=== PATIENT | male | born 1960 | race African-American/Black ===

== ENCOUNTER 2023-10-23 15:18 | Inpatient (IN) | payer OTHER, SELFPAY ==
[2023-10-22] VITALS (15 sets, daily range): BP systolic 120–174; BP diastolic 80–97; BMI 28.2; BMI 27.5
--- NOTE | 2023-10-22 14:46 | ED.CVA ---
History of Present Illness
<HARLEY Ochoa - Last Filed: 10/22/23 15:44>
General
Chief Complaint: CVA/TIA Symptoms
Source: patient
Exam Limitations: none
Time Seen by Provider: 10/22/23 14:39
Nursing documentation reviewed up to this point in time: agreed with
Onset of Stroke Symptoms
Onset of symptoms known: Yes
Date of onset of symptoms: 10/21/23
History of Present Illness
History of Present Illness:
Patient is a 63-year-old male with past medical history of bfw-egikdwm-stbzdzmio diabetes chronic back pain on meloxicam ,brought by friend for evaluation. Neurology and grievance and appeals coordinator at bedside. Patient presents awake alert reports last
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 He did continue to work the rest of the night till 12 AM and drove home .When he got home he noticed that he had a droop to the left side
of his face. He did speak with his friend but did not come to the ER until this morning.
Patient reports that he does feel that when he tries to swipe up on his phone in his left hand it is slightly weaker and off.
He denies any visual changes blurry vision. He denies any chest pain shortness of breath.
Review of Systems
<HARLEY Ochoa - Last Filed: 10/22/23 15:44>
Review of Systems
Allergies reviewed?: Yes
All Other Systems: ROS reviewed and negative except as documented in HPI and ROS
Constitutional: Reports no symptoms
Respiratory: Reports no symptoms
Cardiac: Reports no symptoms
ABD/GI: Reports no symptoms
Musculoskeletal: Reports no symptoms
Skin: Reports no symptoms
Neurological: Reports other (left sided facial droop and slurred speech started around 10: 30 pm Last night )
Psychiatric: Reports no symptoms
Phy Exam
<HARLEY Ochoa - Last Filed: 10/22/23 15:44>
General Physical Exam
General Presentation: no apparent distress
General age: appears stated age
General Skin: warm and dry
General Habitus: normal
General Mental: alert
General Hydration: appears well hydrated
ENT Exam
ENT Exam: EOMI and neck supple
Eye Exam
Eye Exam: PERRL, EOMI and visual lynn normal
Eye Exam General: PERRL: bilateral and EOM intact: bilateral
Pupil Exam: Bilateral: round and reactive
Cardiovascular Exam
Cardiovascular Exam: regular rate/rhythm, no murmur and normal peripheral pulses
Pulmonary Exam
Pulmonary Exam: lungs clear and no respiratory distress
Neurological Exam
Neurological Exam: alert, oriented x3, no motor deficits, no sensory deficits and other (Patient with garbled speech though he is understood. Left-sided facial droop)
NIH Stroke Score
Level of Consciousness: 0 - Alert
LOC questions: 0-Answers both correctly
LOC Commands: 0-Performs both correctly
Best Gaze: 0-Normal
Facial palsy: 2=Partial paralysis
[place] Coma Scale
Eye Opening: Spontaneous
Verbal Response: Oriented
Motor Response: Obeys Commands
GCS Total Score: 15
Musculoskeletal Exam
Musculoskeletal Exam: full ROM
Scores
<HARLEY Ochoa - Last Filed: 10/22/23 15:44>
NIH Stroke Score
Level of Consciousness: 0 - Alert
LOC Questions: 0-Answers both correctly
LOC Commands: 0-Performs both correctly
Best Horizontal Gaze: 0-Normal
Visual Lynn: 0=Normal, no visual loss
Facial Palsy: 2=Partial paralysis
Motor - Right Arm: 0=No drift 10 seconds
Motor - Left Arm: 0=No drift 10 seconds
Motor - Right Le-No drift 5 seconds
Motor - Left Le-No drift 5 seconds
Limb Ataxia: 0-Absent
Sensation: 0-Normal
Best Language: 1-Mild aphasia
Dysarthria: 0-Normal
Extinction and Inattention: 0-No abnormality
Total Score:: 3
<Garland Rice MD - Last Filed: 10/22/23 15:33>
NIH Stroke Score
Total Score:: 3
Course
<HARLEY Ochoa - Last Filed: 10/22/23 15:44>
Orders/Labs/Results
Orders:
Orders
10/22/23 14:41
CT Head W/o Cont STROKE ALERT Urgent
Reason For Exam: cva
CT Head/Neck Ang STROKE ALERT Urgent
Reason For Exam: cva
10/22/23 14:46
Electrocardiogram (*1) Stat
Reason for Study: Other
Other Reason for Exam: neuro symptoms
Bedside Glucose- Treatment ONCE
Cardiac Monitoring- Treatment ONCE
EKG- Treatment ONCE
IV Insert/Care/Rem.- Treatment PRN
10/22/23 14:47
CT Brain Perfusion Stat
Comment:
Reason For Exam: dysarthria, facial weakness, onset 10pm 814
10/22/23 14:54
Complete Blood Count/With Diff Urgent
Comprehensive Metabolic Panel Urgent
Troponin I Urgent
10/22/23 14:56
PT/INR [Prothrombin Time] Stat
10/22/23 15:34
NEUROLOGY CONSULT Urgent
Consulting Provider: Marisela Mendez
Was physician already notified: Yes
Aspirin Chewable [Low Strength Aspirin] 324 mg PO NOW STA
10/22/23 15:35
Clopidogrel Bisulfate [Plavix] 300 mg PO NOW STA
Abnormal Lab Results
10/22/23 10/22/23
14:40 14:54
WBC 3.8 L 10^3/uL
(4.8-10.8)
RBC 4.09 L 10^6/uL
(4.70-6.10)
MCV 100.2 H fL
(80.0-94.0)
MCH 35.0 H pg
(27.0-31.0)
Absolute Lymphs (auto) 0.9 L 10^3/uL
(1.2-3.4)
Monocytes % 13.4 H %
(1.7-9.3)
Glucose 111 H mg/dl
(70-99)
POC Glucose 102 H mg/dl
(70-99)
10/22/23 14:54
10/22/23 14:54
Vital Signs
Initial and Last Documented VS:
Initial Vital Signs
Temp Pulse Resp BP Pulse Ox
98.0 F 88 16 160/93 95
10/22/23 14:34 10/22/23 14:34 10/22/23 14:34 10/22/23 14:34 10/22/23 14:34
Last Documented Vital Signs
Temp Pulse Resp BP Pulse Ox
98.0 F 85 14 147/87 99
10/22/23 14:34 10/22/23 15:27 10/22/23 15:27 10/22/23 15:27 10/22/23 15:27
Cooling Machine Operator consulted with Physician
Cooling Machine Operator consulted with physician?: Yes
Name of Physician Consulted: Dr Rice
<Garland Rice MD - Last Filed: 10/22/23 15:33>
Orders/Labs/Results
Orders:
Orders
10/22/23 14:41
CT Head W/o Cont STROKE ALERT Urgent
Reason For Exam: cva
CT Head/Neck Ang STROKE ALERT Urgent
Reason For Exam: cva
10/22/23 14:46
Electrocardiogram (*1) Stat
Reason for Study: Other
Other Reason for Exam: neuro symptoms
Bedside Glucose- Treatment ONCE
Cardiac Monitoring- Treatment ONCE
EKG- Treatment ONCE
IV Insert/Care/Rem.- Treatment PRN
10/22/23 14:47
CT Brain Perfusion Stat
Comment:
Reason For Exam: dysarthria, facial weakness, onset 10pm 10/20
10/22/23 14:54
Complete Blood Count/With Diff Urgent
Comprehensive Metabolic Panel Urgent
Troponin I Urgent
10/22/23 14:56
PT/INR [Prothrombin Time] Stat
10/22/23 15:34
NEUROLOGY CONSULT Urgent
Consulting Provider: Marisela Mendez
Was physician already notified: Yes
Aspirin Chewable [Low Strength Aspirin] 324 mg PO NOW STA
10/22/23 15:35
Clopidogrel Bisulfate [Plavix] 300 mg PO NOW STA
Abnormal Lab Results
10/22/23 10/22/23
14:40 14:54
WBC 3.8 L 10^3/uL
(4.8-10.8)
RBC 4.09 L 10^6/uL
(4.70-6.10)
MCV 100.2 H fL
(80.0-94.0)
MCH 35.0 H pg
(27.0-31.0)
Absolute Lymphs (auto) 0.9 L 10^3/uL
(1.2-3.4)
Monocytes % 13.4 H %
(1.7-9.3)
Glucose 111 H mg/dl
(70-99)
POC Glucose 102 H mg/dl
(70-99)
10/22/23 14:54
10/22/23 14:54
Vital Signs
Initial and Last Documented VS:
Initial Vital Signs
Temp Pulse Resp BP Pulse Ox
98.0 F 88 16 160/93 95
10/22/23 14:34 10/22/23 14:34 10/22/23 14:34 10/22/23 14:34 10/22/23 14:34
Last Documented Vital Signs
Temp Pulse Resp BP Pulse Ox
98.0 F 85 14 147/87 99
10/22/23 14:34 10/22/23 15:27 10/22/23 15:27 10/22/23 15:27 10/22/23 15:27
<HARLEY Ochoa - Last Filed: 10/22/23 15:44>
MDM/Problems Addressed
Differential Diagnosis Includes:
not limited to: cva
MDM/Problems Addressed:
Patient is a 63-year-old male with past medical history of diabetes chronic back pain on meloxicam and metformin presents to the ER for evaluation. Last night around 10:30 PM working he noticed that his speech was slurred in the medical home at 12
PM he noticed that his face was drooped on the left. He denies any headache nausea vomiting chest pain shortness of breath. No prior history of stroke. Neurology was at bedside when patient was brought back to the room. NIH score is 3 ; patient
with mild slurred speech and facial droop on the left
1526: No large vessel occlusion as per radiology right anterior temporal encephalomalacia.
1535: Neurology back at bedside aspirin Plavix ordered patient emma stable admitted to the hospital service
<HARLEY Ochoa - Last Filed: 10/22/23 15:44>
*Radiology
Radiology exam reviewed: radiology read reviewed
*Pulse Oximetry
Patient hypoxic: no
*EKG
Interpreted by ED Provider?: Yes
Comparison EKG: no comparison EKG present
Heart Rate: 85
Rate: normal
Rhythm: sinus
Ischemia: no ischemia
*Critical Care Note
Total Time (30-74mins, 75-104mins- exclusive of procedures): Not Applicable
<HARLEY Ochoa - Last Filed: 10/22/23 15:44>
Patient Management
Discussion with other providers: Shingle Inspector (Neuro Dr Mendez )
ED Attending Note
<HARLEY Ochoa - Last Filed: 10/22/23 15:44>
-
Portions of this chart may have been created with voice recognition software.� Occasional wrong word or��sound alike� substitutions may have occurred due to the inherent limitations of voice recognition software.
<Garland Rice MD - Last Filed: 10/22/23 15:33>
ED Attending Note
Patient seen and examined by attending physician: Yes
I performed the substantive portion of visit, reviewed & personally made and approve the management plan that is documented in note by myself or EYAD.: Yes
ED Attending Note:
Patient with slurred speech and left facial droop that started last evening. Also notes some incoordination with the left hand. No other symptoms. Patient is diabetic. On exam he has a left facial droop. Mild slurred speech. [id number]
normal. No weakness in the arms or legs. Light touch intact. No extinction.
CT shows right frontal encephalomalacia. No other acute findings. No large vessel occlusion. No acute treatment for this stroke that already occurred but warrants admission for further workup
Discharge Plan
Departure
Patient Disposition: Admit
Date of Disposition: 10/22/23
Time of Disposition: 15:40
Admit to: Telemetry
Admit to doctor: hospitalist
Presentation/result/management discussed w/ accepting MD/DO: Hospitalist
Patient with high blood pressure during this ER visit?: Yes
Condition: Fair
Covid-19: Not Applicable
Discharge Problem:
Acute CVA (cerebrovascular accident)
Referrals:
Jemal Crabtree MD [Family Provider] -
Interventions
Interventions:
*Risk Screen - Suicide Last Done: 10/22/23 15:19
*General Assessment Last Done: 10/22/23 15:19
*Neglect/Abuse Screening Last Done: 10/22/23 15:19
ED- Fall Risk Assessment Last Done: 10/22/23 15:19
ED- Pulmonary Assessment Last Done: 10/22/23 15:19
ED- Neurological Assessment Last Done: 10/22/23 15:30
ED- Cardiac Assessment Last Done: 10/22/23 15:19
ED Swallowing Screen Last Done: 10/22/23 15:37
Discharge Date and Time
Print Language: URDU
[2023-10-22 14:51] LABS: Glucose - Point of Care 102 mg/dl (70-99)
--- NOTE | 2023-10-22 14:54 | CON.NEURO4 ---
Addendum entered and electronically signed by Marisela Mendez DO 10/22/23 16:56:
Studies reviewed.
I have personally examined the patient. I agree with the CHARGER TESTER's Note.
My addenda: 63 year-old male with a history of diabetes who presented for evaluation for moderate dysarthria and L facial weakness with onset yesterday at 10pm while at work. He also has noted mild difficulty with left hand fine motor skills
(although this was not seen on exam). Agree with exam as documented below, NIHSS is 3; CTA showed no LVO. CTP was negative for stroke.
Differentials for the patient's presentation include:
1. Acute right hemispheric ischemic stroke
2. hypertensive urgency
Patient has the following risk factors for their symptoms: age, DM
IV Tenecteplase/IAT candidacy-out of the window for TNK, no LVO noted on CTA for IAT
Recommendations:
MRI brain without contrast
Load with 325 mg ASA and Plavix 300 mg once swallow evaluation completed
Then ASA 81 mg and Plavix 75 mg daily for 21 days. After 21 days he should continue ASA 81 mg indefinitely
Check Echo
Check lipids-goal LDL less the 70-start Atorvastatin 40 mg
Check [id number] normoglycemia
Allow permissive hypertension 220/110 for 24 hours and then goal normotension
NIH scale and neurochecks per unit protocol
PT/OT and speech evaluations
DVT prophylaxis
Original Note:
Documented by User: HARLEY Alvarenga 10/22/23 16:03
Consultation - Neurology 4
-
CONSULTING PHYSICIAN: Dr. Marisela Mendez
REFERRING PHYSICIAN: HARLEY Brunson
DICTATED BY: HARLEY Alvarenga
DATE/TIME OF REQUEST: 10/22/2023
DATE/TIME OF CONSULTATION: 10/22/2023
Reason for Consultation: stroke Alert
History of Present Illness:
This is a 63-year-old male patient with past medical history of cve-fwsahor-hhzpcnoca diabetes and chronic back pain who came to the ER with left facial droop and dysarthria. Patient reports last night he was working and around 10:30 PM noticed
slurred speech. He did continue to work the rest of the night and drove home. At home he noted left facial droop. He did speak with his friend, who encouraged him to come to the ER, but did not come to the ER until this afternoon after his friend
came to the house. He denied any speech changes or trouble swallowing. He denied any vision changes or dizziness. He denied headache. He denied numbness tingling or weakness of his extremities. He denied issues with cognition. He does report
now that he has some mild dexterity changes of his left hand with fine motor skills (difficulty scrolling on phone and writing). He was hypertensive upon arrival to the ER 160/93. he has no history of stroke. He was not on any antiplatelet prior
to arrival.
Past Medical History: chronic back pain, DM
Surgical History: none noted
Family History: No family history of stroke
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 He does not smoke. He does have about 4 beers 4 days a week
Allergies: NKDA
Home Medications: Meloxicam, metfomin
Review of Symptoms:
Patient denies any fever, headache, chest pain, shortness of breath, GI or symptoms.
�
Vital Signs:
see below
Physical Exam:
The patient is afebrile, heart sounds S1 and S2 are regular and chest is clear to auscultation bilaterally.
NIH Stroke Scale:
I performed the NIH stroke scale on the patient on 10/21/2022 1515. The patient scored 3 points on the NIH stroke scale assessment-see below
Neurologic Examination:
The patient is awake, alert and oriented x 3. He is able to follow commands and answer questions appropriately. There is no aphasia. He does have mild dysarthria. On cranial nerve assessment, pupils are 3 mm bilateral, round and reactive to light
and accommodation. Visual lynn are full. Extraocular movements are intact. Facial sensations are intact and bilaterally symmetrical, there is a left facial droop. Hearing is intact bilaterally to normal conversation volume. Tongue palate and uvula
are midline. Sternocleidomastoid strengths are full bilaterally. Motor strengths are 5/5 bilateral upper and lower extremities on medical research [place] scale. There is no drift or involuntary movement noted. Deep tendon reflexes are 2+ bilateral
upper and lower extremities and Babinski is absent bilaterally. Sensations of light touch, temperature and vibration are intact and bilaterally symmetrical. There was no extinction noted on double simultaneous stimulation. Coordination is intact by
finger to nose bilaterally.
Lab Results: see below
Neuro Imaging:
CT head 10/22/2023
CTA head and neck 10/22/2023
Impression:
ANGELA SOTO is a 63 year old M who has presented to the hospital with left facial droop and dysarthria. He also has noted mild difficulty with left hand fine motor skills.
Differentials for the patient's presentation include:
1. Acute right hemispheric ischemic stroke
2. hypertensive urgency
Patient has the following risk factors for their symptoms: age, DM
IV Tenecteplase/IAT candidacy-out of the window for TNK, no LVO noted on CTA for IAT
Recommendations:
MRI brain without contrast
No need for MRA's as pt had CTA in the ER
Load with 325 mg ASA and Plavix 300 mg once swallow evaluation completed
Then ASA 81 mg and Plavix 75 mg daily for 21 days. After 21 days he should continue ASA 81 mg indefinitely
Check Echo
Check lipids-goal LDL less the 70-start Atorvastatin 40 mg
Check [id number] normoglycemia
Allow permissive hypertension 220/110 for 24 hours and then goal normotension
NIH scale and neurochecks per unit protocol
PT/OT and speech evaluations
DVT prophylaxis
Discussed patient care with patient, visitor at bedside and Kaylee Gu NP
NIH Stroke Score
NIH Stroke Score
Level of Consciousness: 0 - Alert
LOC Questions: 0-Answers both correctly
LOC Commands: 0-Performs both correctly
Best Horizontal Gaze: 0-Normal
Visual Lynn: 0=Normal, no visual loss
Facial Palsy: 2=Partial paralysis
Motor - Right Arm: 0=No drift 10 seconds
Motor - Left Arm: 0=No drift 10 seconds
Motor - Right Le-No drift 5 seconds
Motor - Left Le-No drift 5 seconds
Limb Ataxia: 0-Absent
Sensation: 0-Normal
Best Language: 0-No aphasia
Dysarthria: 1-Mild slurring
Extinction and Inattention: 0-No abnormality
Total Score:: 3
Medication and Allergies
Allergies
Allergies
Allergy/AdvReac Type Severity Reaction Status Date / Time
No Known Allergies Allergy Unverified 10/22/23 14:31
Vital Signs and Labs
-
Vital Signs and Labs:
Vital Signs
Temp Pulse Resp BP Pulse Ox
98.0 F 87 17 154/80 95
10/22/23 14:34 10/22/23 14:57 10/22/23 14:57 10/22/23 14:57 10/22/23 14:57
Lab Results
10/22/23 14:54
10/22/23 14:54
PT 13.2 Sec (11.4-14.6) 10/22/23 14:56
INR 1.00 10/22/23 14:56
Sodium 137 mmol/L (135-145) 10/22/23 14:54
Potassium 4.1 mmol/L (3.5-5.1) 10/22/23 14:54
BUN 9 mg/dl (9-20) 10/22/23 14:54
Glucose 111 mg/dl (70-99) H 10/22/23 14:54
Calcium 9.8 mg/dl (8.4-10.2) 10/22/23 14:54

Documented by User: Marisela Mendez DO 10/22/23 16:47
NIH Stroke Score
NIH Stroke Score
Total Score:: 3
[2023-10-22 15:04] LABS: % Basophils 1.3 % (0-2); % Eosinophils 5.8 % (0-6); % Lymphocytes 23.8 % (20.5-51.1); % Monocytes 13.4 % (1.7-9.3); % Neutrophils 55.7 % (42.2-75.2); Absolute Basophils 0.1 10^3/uL (0-0.2); Absolute Eosinophils 0.2 10^3/uL (0-0.7); Absolute Lymphocytes 0.9 10^3/uL (1.2-3.4); Absolute Monocytes 0.5 10^3/uL (0.1-0.6); Absolute Neutrophils 2.1 10^3/uL (1.4-6.5); Hemoglobin 14.3 g/dL (13.0-18.0); Mean Corp Hgb Conc. 34.9 g/dL (33.0-37.0); Mean Corpuscular Volume 100.2 fL (80.0-94.0); Mean Platelet Volume 9.3 fL (7.4-10.4); Nucleated Red Blood Cells % 0 % (-); Platelet Count 233 10^3/uL (130-400); Red Blood Cell Count 4.09 10^6/uL (4.70-6.10); Red Cell Dist. Width 12.3 % (11.5-14.5); White Blood Cell Count 3.8 10^3/uL (4.8-10.8)
[2023-10-22 15:14] LABS: PT 13.2 Sec (11.4-14.6)
--- NOTE | 2023-10-22 15:15 | EDRN ---
Received patient on stretcher. Patient stated that he developed slurred speech last night around [id number] PM while he was at work. Patient stated that he then developed a left facial droop last night. Patient denies
dizziness,headache,weakness,numbness/tingling and visual changes. MAEx4 equally.
[2023-10-22 15:20] LABS: Chloride 102 mmol/L (98-107)
[2023-10-22 15:22] LABS: ALT (SGPT) 24 U/L (0-50); AST (SGOT) 37 U/L (17-59); Albumin 4.8 g/dl (3.5-5.0); Alkaline Phosphatase 75 U/L (38-126); Blood Urea Nitrogen 9 mg/dl (9-20); Calcium 9.8 mg/dl (8.4-10.2); Carbon Dioxide 27 mmol/L (22-30); Glucose 111 mg/dl (70-99); Potassium 4.1 mmol/L (3.5-5.1); Sodium 137 mmol/L (135-145); Total Bilirubin 0.5 mg/dl (0.2-1.3); Total Protein 7.5 g/dl (6.3-8.2); eGFR > 60.00
[2023-10-22 15:32] LABS: Troponin I < 0.012 ng/ml
[2023-10-22] MEDS: LOW STRENGTH ASPIRIN 324 MG PO (15:52)
[2023-10-22] MEDS: PLAVIX 300 MG PO (15:52)
--- NOTE | 2023-10-22 16:21 | HPS.HSE ---
Family Physician
-
Family Physician: Jemal Crabtree MD
Chief Complaint
-
slurred speech
History of Present Illness
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 He continued to work the rest of the night until 12 AM
and drove home. When he got home he noticed he had a droop of the left side of the face. He does feel that his left hand feels different when he tries to swipe his phone with his left hand. He denies any visual changes or blurry vision or
headache. He denies any chest pain or shortness of breath.
Multiple family numbers in his family have diabetes.
He denies smoking. He drinks up to 4 beers 4 times a week. His last drink was yesterday.
Medical History
Past Medical History
Past Medical History: Reports Other (diabetes, chronic back pain, BPH)
Past Surgical History: Reports None
Social History
Tobacco: Non-smoker
Alcohol: Occasional
Drug: None
Family History
Family History: Not pertinent
Allergies / Home Medications
Allergies reflects when Allergies were last updated in [facility].
Home Medications with original date entered in [facility]
Allergy/Medication List:
Allergies
Allergy/AdvReac Type Severity Reaction Status Date / Time
No Known Allergies Allergy Verified 10/22/23 15:55
Home Medications
acetaminophen 500 mg tablet (Tylenol Extra Strength) 1,000 mg PO Q6HPRN PRN mild pain 10/22/23
calcium carbonate 1,000 mg PO DAILY 10/22/23
meloxicam 7.5 mg tablet 7.5 mg PO DAILY 10/22/23
metformin 500 mg tablet 500 mg PO BIDWMEAL 10/22/23
sildenafil 100 mg tablet 100 mg PO DAILYPRN PRN ed 10/22/23
tamsulosin 0.4 mg capsule 0.4 mg PO DAILY 10/22/23
Review of Systems
-
History Source: Patient
A 12 point ROS was completed and negative except as noted: Yes
Constitutional: Reports No Symptoms
EENT: Reports No Symptoms
Respiratory: Reports No Symptoms
Cardiac: Reports No Symptoms
Abdomen/GI: Reports No Symptoms
: Reports No Symptoms
Musculoskeletal: Reports No Symptoms
Skin: Reports No Symptoms
Neurological: Reports See HPI
Endocrine: Reports No Symptoms
Hematologic/Lymphatic: Reports No Symptoms
Psych: Reports No Symptoms
Physical Exam
Vital Signs
Vital Signs
Temp Pulse Resp BP Pulse Ox
98.0 F 76 18 120/93 96
10/22/23 14:34 10/22/23 15:45 10/22/23 15:45 10/22/23 15:45 10/22/23 15:45
Physical Exam
General: Well Developed, Well Nourished and No Apparent Distress
HEENT: NormoCephalic, Moist mucous membranes and Atraumatic
Respiratory: Clear
Cardiac: S1/S2 and Regular Rhythm; No Murmur or Rub
GI: Soft, Non Tender, Non Distended and Normal Bowel Sounds; No Organomegaly
Rectal: Deferred by Provider
Musculoskeletal: No Clubbing, No Cyanosis and No Edema
Skin: No Rash
Neuro: Nonfocal/grossly intact and Other (NIH of 3 secondary to mild slurring, partial paralysis of face)
Laboratory Results
-
10/22/23 14:54
10/22/23 14:54
Laboratory Results
PT 13.2 Sec (11.4-14.6) 10/22/23 14:56
INR 1.00 10/22/23 14:56
Total Bilirubin 0.5 mg/dl (0.2-1.3) 10/22/23 14:54
AST 37 U/L (17-59) 10/22/23 14:54
ALT 24 U/L (0-50) 10/22/23 14:54
Alkaline Phosphatase 75 U/L (38-126) 10/22/23 14:54
Troponin I < 0.012 ng/ml 10/22/23 14:54
Data Reviewed
-
Lab Data: Labs Reviewed by me
Old Records: Reviewed
Impression/Plan
-
IMPRESSION:
PLAN:
# Likely acute right hemispheric CVA
-NIH of 3 secondary to mild slurring, partial paralysis of face
-CT head shows no acute intracranial abnormality, hyperdensity along the right anterior temporal lobe likely encephalomalacia
-CTA showed mild fusiform dilatation of the right cavernous ICA 5 mm, hypoplastic left P1 segment
-CT with perfusion unremarkable
-Aspirin and Plavix
-Statin started
-MRI brain
-Check echo
-Check A1c and lipid panel
-Permissive hypertension
-Check speech and swallow
-PT/OT
# Moderate alcohol use
-No signs of withdrawal currently
-Alcohol withdrawal protocol
Type 2 diabetes
-Continue metformin
Chronic back pain
-Continue Tylenol
-Try to minimize meloxicam use
BPH
-Continue tamsulosin
Full code
DVT prophylaxis�SCDs
Diabetic diet
[2023-10-22 16:59] LABS: HDL Cholesterol 72 mg/dl; LDL Cholesterol, Calculated 57 mg/dl; Total Cholesterol 166 mg/dl (50-199); Triglyceride 185 mg/dl (10-149); Very Low Density Lipoprotein 37 mg/dl (0-30)
--- NOTE | 2023-10-22 17:30 | EDRN ---
Spoke to GLORIA Walls who is receiving the patient. [facility] went over with GLORIA Walls. Patient taken to room 319-1 on stretcher on monitor by experimental technician.
--- NOTE | 2023-10-22 17:48 | PTCARENOTE ---
Pt received from the ED via stretcher. Pt ambulated from stretcher to standing scale with steady gait. Pt oriented to staff, environment and call light system. Personal items and call light within reach.
[2023-10-22] MEDS: GLUCOPHAGE 500 MG PO (18:29)
[2023-10-22] MEDS: LIPITOR 40 MG PO (18:30)
[2023-10-22 18:31] LABS: Glucose - Point of Care 114 mg/dl (70-99)
[2023-10-22 22:24] LABS: Glucose - Point of Care 97 mg/dl (70-99)
[2023-10-23] VITALS (8 sets, daily range): BP systolic 115–158; BP diastolic 63–93; PULSE 67–70; O2SAT 98
[2023-10-23 07:06] LABS: Hematocrit 38.7 % (39.0-52.0); Hemoglobin 13.7 g/dL (13.0-18.0); Mean Corp Hgb Conc. 35.4 g/dL (33.0-37.0); Mean Corpuscular Hgb 34.6 pg (27.0-31.0); Mean Corpuscular Volume 97.7 fL (80.0-94.0); Mean Platelet Volume 9.2 fL (7.4-10.4); Platelet Count 218 10^3/uL (130-400); Red Blood Cell Count 3.96 10^6/uL (4.70-6.10); White Blood Cell Count 4.9 10^3/uL (4.8-10.8)
[2023-10-23 07:42] LABS: Glucose - Point of Care 123 mg/dl (70-99)
[2023-10-23 08:13] LABS: Blood Urea Nitrogen 12 mg/dl (9-20); Calcium 9.4 mg/dl (8.4-10.2); Carbon Dioxide 25 mmol/L (22-30); Chloride 102 mmol/L (98-107); Estimated Creatinine Clearance 77 ml/min; Glucose 110 mg/dl (70-99); HDL Cholesterol 69 mg/dl; LDL Cholesterol, Calculated 71 mg/dl; Sodium 135 mmol/L (135-145); Total Cholesterol 156 mg/dl (50-199); Triglyceride 83 mg/dl (10-149); Very Low Density Lipoprotein 16 mg/dl (0-30); eGFR > 60.00
[2023-10-23] MEDS: GLUCOPHAGE 500 MG PO (08:13)
[2023-10-23] MEDS: FLOMAX 0.4 MG PO (08:13)
[2023-10-23] MEDS: OSCAL CAL 500 1000 MG PO (08:13)
[2023-10-23] MEDS: LOW STRENGTH ASPIRIN 81 MG PO (08:13)
[2023-10-23] MEDS: VITAMIN B1 100 MG PO ×2 (08:14→20:22)
[2023-10-23] MEDS: PLAVIX 75 MG PO (08:14)
[2023-10-23] MEDS: FOLVITE 1 MG PO (08:14)
--- NOTE | 2023-10-23 09:29 | PTOTSP ---
REAL [employer]STATE INVESTOR Evaluations
Patient presents with signs concerning for at least mild oral/pharyngeal dysphagia and suspected aspiration with thin liquids. Patient reported chronic coughing with liquids prior to admission. He is now admitted with concern for a R CVA. Video
swallow study warranted to objectively assess swallowing function.
Patient with mild-moderate dysarthria and concern for cognitive linguistic changes (i.e., MOCA Version 8.1 =20/30 concerning for a mild cognitive linguistic impairment; normal score= 26 or higher).
Recommend:
1. Regular, Thin Liquids
2. Medications - in puree
3. Strategies: upright to 90 degrees, small single sips/bites, slow rate, take break if coughing occurs, oral care 3x daily
4. Video swallow study
5. Outpatient speech and cognitive linguistic therapy.
--- NOTE | 2023-10-23 09:40 | W.PN.NEURO.1 ---
Addendum entered and electronically signed by Marisela Mendez, 10/23/23 21:14:
MRI brain confirms:
Acute to subacute nonhemorrhagic infarct in the right carlos radiata measuring 1.4 x 1.0 cm.
Addendum entered and electronically signed by Marisela Mendez, 10/23/23 11:46:
Studies reviewed.
I have personally examined the patient. 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
My addenda: 63-year-old male with abrupt onset of left facial weakness and dysarthria that started 2 nights ago. Both symptoms have improved mildly overnight. No new symptoms. Head CT, CTA and CT perfusion were unremarkable. Will check an MRI of
the brain with and without contrast to evaluate for etiologies other than stroke. Will continue dual antiplatelet therapy for now. Echocardiogram showed no cardio embolic source for emboli. Will continue to follow.
Original Note:
Today's Communication / Plan
-
- Awaiting MRI
-continue aspirin Plavix
-continue atorvastatin
-Continue PT OT speech evaluations
Neuro Assessment/Plan
Assessment
This is a 63-year-old male patient who presented to the ER with left facial weakness and dysarthria that had started the night prior.
CT head, CTA head and neck, and CT perfusion unremarkable. Awaiting MRI.
Likely cause of symptoms due to right hemispheric stroke.
Plan
-CT head, CTA head and neck, and CT perfusion unremarkable which were performed in the ER yesterday
-MRI brain pending
-Echo with no CSE or PFO
-Continue aspirin 81 mg and Plavix 75 mg for 21 days then discontinue Plavix and continue aspirin 81 mg daily and definiteliny
-LDL 71, continue atorvastatin 40. Goal LDL less than 70
-Continue neurochecks and NIH scale per unit guidelines
-Goal normotension
-Goal normoglycemia, hemoglobin A1c pending
-Continue PT OT and speech evaluations and treatment
-DVT prophylaxis
Subjective/Objective
Subjective Data
Date of Service: October 23, 2023
Py feeling well this am. Facial droop some dysarthria still present but have improved. No new neurologic events overnight.
Objective Data
Vital Signs
Temp Pulse Resp BP Pulse Ox
97.7 F 66 16 146/90 98
10/23/23 07:35 10/23/23 07:35 10/23/23 07:35 10/23/23 07:35 10/23/23 07:35
Lab Results
10/23/23 06:56
10/23/23 06:56
PT 13.2 Sec (11.4-14.6) 10/22/23 14:56
INR 1.00 10/22/23 14:56
Sodium 135 mmol/L (135-145) 10/23/23 06:56
Potassium 4.0 mmol/L (3.5-5.1) 10/23/23 06:56
BUN 12 mg/dl (9-20) 10/23/23 06:56
Glucose 110 mg/dl (70-99) H 10/23/23 06:56
Calcium 9.4 mg/dl (8.4-10.2) 10/23/23 06:56
LDL Cholesterol, Calc 71 mg/dl 10/23/23 06:56
Patient Allergies
No Known Allergies Allergy (Verified 10/22/23 15:55)
LDL Level: >70, statin ordered
Review of Systems
-
History Source: Patient
All other systems: Reviewed and negative
Constitutional: No Symptoms
EENT: No Symptoms Reported
Respiratory: No Symptoms
Cardiac: No Symptoms
Abdomen/GI: No Symptoms
Genitourinary: No Symptoms
Musculoskeletal: No Symptoms
Skin: No Symptoms
Neuro: Weakness (left mild hand weakness and left facial droop)
Endocrine: No Symptoms
Hematologic / Lymphatic: No Symptoms
Allergy / Immunology: No Symptoms
Physical Exam
-
General: Well Developed, Well Nourished and No Apparent Distress
Eyes: Unremarkable and Round OU
HEENT: Normocephalic and Atraumatic
Neck: Full Range of Motion
Respiratory: No Dyspnea; Negative Accessory Resp Muscle Use
Cardiac: Regular Rhythm
GI: Non-distended
Skin: Unremarkable
Extremities: No Clubbing, No Cyanosis and No Edema
Psych: Unremarkable
Extended Neurological Exam
Mood & Affect: Mood Unremarkable and Affect Unremarkable
Attention Span & Concentration: Awake, Alert, Interactive and No Difficulty with 2 Step Request
Memory: Unremarkable
Tremor: Hand Tremor Absent and Head Tremor Absent
Involuntary Movement: None
Speech: Dysarthric (mild)
Cranial Nerve II: Left Eye: Pupillary Reactivity Unremarkable, Pupillary Size Unremarkable and Visual Lynn Grossly Intact
Cranial Nerve II: Right Eye: Pupillary Reactivity Unremarkable and Pupillary Size Unremarkable
Cranial Nerves III, IV, : Extraocular Movement: Extraocular Movement Full in all Directions
Cranial Nerve V: Facial Sensation: Facial Sensation Unremarkable to Cold
Cranial Nerve VII: Facial Symmetry: Reduced (left)
Cranial Nerve VIII: Hearing: Unremarkable Hearing to Normal Conversational Volume
Cranial Nerves IX, X: Palate Movement: Palate Elevation Symmetric
Cranial Nerve XI: Shoulder Shrug: Unremarkable
Cranial Nerve XII: Tongue Protusion: Midline
Muscle Strength, Overall: Full Throughout
Muscle Bulk & Tone: Bulk Unremarkable and Tone Unremarkable
Pronator Drift: No Drift in Upper Extremities and No Drift in Lower Extremities
Cold Sensation: Unremarkable
Touch Sensation: Unremarkable
Coordination: [id number]-wmcvon Testing Unremarkable
Data Reviewed
-
CT-A: Report Reviewed
CT Head: Report Reviewed
MRI Head: Pending
Echocardiogram: Report Reviewed
Labs: Report Reviewed
Lipid Profile: Report Reviewed
HgbA1C: Ordered
Reviewed with: Physician
[2023-10-23 10:12] LABS: Glycohemoglobin (HgbA1c) 6.3 % (4.0-5.6)
--- NOTE | 2023-10-23 10:40 | PTOTSP ---
Speech Language Pathology
VIDEOFLUOROSCOPIC SWALLOWING EXAMINATION (VSE) completed. Overall, pt with mild oropharyngeal dysphagia. Pharyngeal residue noted with all consistencies. Questionable trace penetration to level of the vocal folds noted with thin liquids via cup
x1 and supraglottic penetration noted with mildly thick liquids x1. No other penetration or any aspiration noted during study.
Recommend:
(1) Continue regular solids/thin liquids
(2) Aspiration precautions: sit upright, single sips, slow rate, frequent sips of liquid during meals, intermittent throat clear/reswallow
(3) Meds whole in puree
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
[2023-10-23] MEDS: ATIVAN 0.5 MG PO (11:08)
[2023-10-23 12:14] LABS: Glucose - Point of Care 111 mg/dl (70-99)
--- NOTE | 2023-10-23 13:07 | CM ---
Addendum entered by ERICA Blackburn 10/23/23 13:21:
Consult received for ETOH resources. Patient denied need.
Original Note:
Reviewed chart, met with patient to obtain information for assessment. Patient stated that he lives alone in a one floor condo with no steps to enter. He is independent with his ADLs, personal care, dressing and bathing. He ambulates without device.
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 His a year ago however he has a supportive significant other. Patient drives and can get to all of his appointments and do all of his own shopping. He works.
He denied any DME in his home.
He has never had VN, or been to a SNF.
Patient has a prescription plan and uses, [facility] in [place] for all of his medications.
Patient right now is obs status-signed galicia letter.
Patient does not feel that he will need SNF and feels that he will be able to return home when medically cleared for discharge.
Plan: Case management will continue to follow and assist with discharge planning. Home when stable.
--- NOTE | 2023-10-23 15:16 | W.PN.HOSP.TC ---
Addendum entered and electronically signed by Bill Agarwal MD 10/23/23 15:39:
I personally performed a history and physical exam of the patient and discussed management with the resident. I reviewed the resident's note and agree with the documented findings and plan of care HPI/CC except changes in documentation.
63-year-old male presented with slurry speech
CVS: S1-S2 normal
Chest: CTA B/L
Abdomen: Soft, NT / Bowel sounds present
Extremities: No edema, normal pulses
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
# CVA symptoms-slightly speech and facial droop
Symptoms likely secondary to acute right hemispheric CVA
CT without any acute changes but there is hypodensity along the right anterior temporal lobe
CTA with mild fusiform dilatation of the right cavernous ICA 5 mm, hypoplastic left P1 segment
CT perfusion unremarkable
Aspirin Plavix and statin to be continued
MRI of the brain-acute/subacute nonhemorrhagic infarct in the right carlos radiata 1.4 and 1 cm
Echo 10/22/2023-normal LV size and function. No regional wall motion abnormality. EF 61%. Mild asymmetric basal septal hypertrophy. Normal diastolic function. Normal RV size and function.
Lipid panel noted
# Hypertensive urgency versus reactive blood pressure to stroke-likely latter
Blood pressure stabilized
# Moderate alcohol use
Continue alcohol withdrawal protocol and thiamine replacement
# Type 2 diabetes
Hemoglobin A1c 6.3
Hold metformin with IV dye exposure
Accu-Cheks and sliding scale coverage
# Chronic back pain-continue Tylenol
# Enlarged prostate-Flomax
# DVT prophylaxis-Lovenox
# Full code
Discussed with neurology
Discussed with Occupational Therapy. Patient should follow-up with outpatient speech and occupational therapy before he starts to drive again. 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
Original Note:
Today's Communication/Plan
-
Continue on Plavix, aspirin, atorvastatin
Monitor patient overnight
Likely discharge tomorrow
Assessment / Plan
Assessment / Plan
Impression:
# Acute to subacute nonhemorrhagic infarct in the right carlos radiata
-NIH of 3 secondary to mild slurring, partial paralysis of face
-CT head shows no acute intracranial abnormality, hyperdensity along the right anterior temporal lobe likely encephalomalacia
-CTA showed mild fusiform dilatation of the right cavernous ICA 5 mm, hypoplastic left P1 segment
-MRI showed acute to subacute nonhemorrhagic infarct in the right carlos radiata measuring 1.4 x 1.0 cm
-CT with perfusion unremarkable
-Aspirin and Plavix
-Permissive hypertension
-Echo normal. No cardioembolic source for emboli per neurology
-A1c 6.3, LDL 71. Goal LDL less than 70 per neuro, continue atorvastatin
-Speech modified barium study showed no fluoroscopic evidence of airway aspiration
-Patient feeling well and ready to go home. Likely discharge tomorrow
# Moderate alcohol use
-No signs of withdrawal currently
-Alcohol withdrawal protocol
#Type 2 diabetes
-Continue metformin
#Chronic back pain
-Continue Tylenol
-Try to minimize meloxicam use
#BPH
-Continue tamsulosin
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
Anticipated Discharge: Within 24 hours
Subjective/Interval History
-
Date of Service: October 23, 2023
Objective Data
-
Labs:
Laboratory Results
10/23/23
06:56
WBC 4.9
Hgb 13.7
Hct 38.7 L
Plt Count 218
Sodium 135
Potassium 4.0
Chloride 102
Carbon Dioxide 25
BUN 12
Creatinine 0.8
Glucose 110 H
Calcium 9.4
Vital Signs:
Vital Signs
Temp Pulse Resp BP Pulse Ox
97.7 F 63 16 141/83 99
10/23/23 12:14 10/23/23 12:14 10/23/23 12:14 10/23/23 12:14 10/23/23 12:14
I&O
10/22/23 10/23/23 10/24/23
06:59 06:59 06:59
Intake Total 960 / 960
Balance 960 / 960
Review of Systems
-
History Source: Patient
Constitutional: Reports No Symptoms
EENT: Reports No Symptoms Reported
Respiratory: Reports No Symptoms
Cardiac: Reports No Symptoms
Abdomen/GI: Reports No Symptoms
Genitourinary: Reports No Symptoms
Neuro: Reports Other (Feels a slight left sided facial droop); Denies Dizzy, Headache, Weakness, Numbness or Ataxia
Physical Exam
-
Respiratory: Clear to Auscultation
Cardiac: Regular Rhythm and S1/S2
GI: Soft, Nontender and Nondistended
Musculoskeletal: No Edema
Neuro: AO x 3, No Motor Deficits, Central Nerve's Intact, No Sensory Deficits, Slurred Speech (Very mild) and Facial Droop
Psych: Calm
[2023-10-23 16:48] LABS: Glucose - Point of Care 119 mg/dl (70-99)
[2023-10-23] MEDS: LIPITOR 40 MG PO (17:13)
[2023-10-23 21:04] LABS: Glucose - Point of Care 172 mg/dl (70-99)
[2023-10-24 03:29] VITALS: BP 144/74
[2023-10-24 07:16] LABS: Glucose - Point of Care 137 mg/dl (70-99)
[2023-10-24 07:31] VITALS: BP 135/80
[2023-10-24] MEDS: PLAVIX 75 MG PO (07:41)
[2023-10-24] MEDS: LOW STRENGTH ASPIRIN 81 MG PO (07:41)
[2023-10-24] MEDS: FLOMAX 0.4 MG PO (07:41)
[2023-10-24] MEDS: OSCAL CAL 500 1000 MG PO (07:42)
[2023-10-24] MEDS: FOLVITE 1 MG PO (07:42)
[2023-10-24] MEDS: VITAMIN B1 100 MG PO (07:42)
[2023-10-24 11:21] VITALS: BP 146/87
[2023-10-24 12:02] LABS: Glucose - Point of Care 56 mg/dl (70-99)
[2023-10-24 12:22] LABS: Glucose - Point of Care 146 mg/dl (70-99)
--- NOTE | 2023-10-24 12:35 | W.PN.NEURO.1 ---
Today's Communication / Plan
-
d/c
Neuro Assessment/Plan
Assessment
63-year-old male with abrupt onset of left facial weakness and dysarthria that started 3 nights ago. Both symptoms have improved mildly. No new symptoms. Head CT, CTA and CT perfusion were unremarkable. MRI brain showed acute to subacute
nonhemorrhagic infarct in the right carlos radiata measuring 1.4 x 1.0 cm, likely atherothrombotic in etiology. Reports increased stress level with working 12 hour days 6 days per week; states that BP is often elevated after a shift.
Plan
-reviewed results with patient at length
-Echo with no CSE or PFO
-Continue aspirin 81 mg and Plavix 75 mg for 21 days then discontinue Plavix and continue aspirin 81 mg daily and definitely
-LDL 71, continue atorvastatin 40. Goal LDL less than 70
-Continue neurochecks and NIH scale per unit guidelines
-Goal normotension
-Goal normoglycemia, hemoglobin A1c pending
-Continue PT OT and speech evaluations and treatment
-DVT prophylaxis
Cleared for d/c from my standpoint
Should f/u with PCP in next few days; will discuss disability with him. Would hold off on going back to work at this point.
Reviewed s/s of stroke, importance of calling 911 should these recur
Provided contact info for my office, Dr. Mendez/Ashlee's offices
Subjective/Objective
Subjective Data
Date of Service: October 24, 2023
dysarthria a bit better
Objective Data
Vital Signs
Temp Pulse Resp BP Pulse Ox
97.6 F 63 16 146/87 99
10/24/23 11:21 10/24/23 11:21 10/24/23 11:21 10/24/23 11:21 10/24/23 11:21
Lab Results
10/23/23 06:56
08/16/24 06:56
PT 13.2 Sec (11.4-14.6) 10/22/23 14:56
INR 1.00 10/22/23 14:56
Sodium 135 mmol/L (135-145) 10/23/23 06:56
Potassium 4.0 mmol/L (3.5-5.1) 10/23/23 06:56
BUN 12 mg/dl (9-20) 10/23/23 06:56
Glucose 110 mg/dl (70-99) H 10/23/23 06:56
Calcium 9.4 mg/dl (8.4-10.2) 10/23/23 06:56
LDL Cholesterol, Calc 71 mg/dl 10/23/23 06:56
Patient Allergies
No Known Allergies Allergy (Verified 10/22/23 15:55)
Physical Exam
-
General: Well Developed, Well Nourished and No Apparent Distress
Eyes: Unremarkable and Round OU
HEENT: Normocephalic and Atraumatic
Neck: Full Range of Motion
Respiratory: No Dyspnea; Negative Accessory Resp Muscle Use
Cardiac: Regular Rhythm
GI: Non-distended
Skin: Unremarkable
Extremities: No Clubbing, No Cyanosis and No Edema
Psych: Unremarkable
Extended Neurological Exam
Mood & Affect: Mood Unremarkable and Affect Unremarkable
Attention Span & Concentration: Awake, Alert, Interactive and No Difficulty with 2 Step Request
Memory: Unremarkable
Tremor: Hand Tremor Absent and Head Tremor Absent
Involuntary Movement: None
Speech: Dysarthric (moderate)
Cranial Nerve II: Left Eye: Pupillary Reactivity Unremarkable, Pupillary Size Unremarkable and Visual Lynn Grossly Intact
Cranial Nerve II: Right Eye: Pupillary Reactivity Unremarkable and Pupillary Size Unremarkable
Cranial Nerves III, IV, : Extraocular Movement: Extraocular Movement Full in all Directions
Cranial Nerve V: Facial Sensation: Facial Sensation Unremarkable to Cold
Cranial Nerve VII: Facial Symmetry: Reduced (left)
Cranial Nerve VIII: Hearing: Unremarkable Hearing to Normal Conversational Volume
Cranial Nerves IX, X: Palate Movement: Palate Elevation Symmetric
Cranial Nerve XI: Shoulder Shrug: Unremarkable
Cranial Nerve XII: Tongue Protusion: Midline
Muscle Strength, Overall: Full Throughout
Muscle Bulk & Tone: Bulk Unremarkable and Tone Unremarkable
Pronator Drift: No Drift in Upper Extremities and No Drift in Lower Extremities
Cold Sensation: Unremarkable
Touch Sensation: Unremarkable
Coordination: Cpwrhw-bvvq-lzmtvy Testing Unremarkable
NIHSS: 3--2 for facial weakness, 1 for dysarthria
NIH Stroke Scale
NIH Stroke Score
Date of Subsequent NIH Scale: 10/24/23
Time of Subsequent NIH Scale: 11:30
Level of Consciousness: 0 - Alert
LOC Questions: 0-Answers both correctly
LOC Commands: 0-Performs both correctly
Best Horizontal Gaze: 0-Normal
Visual Lynn: 0=Normal, no visual loss
Facial Palsy: 2=Partial paralysis
Motor - Right Arm: 0=No drift 10 seconds
Motor - Left Arm: 0=No drift 10 seconds
Motor - Right Le-No drift 5 seconds
Motor - Left Le-No drift 5 seconds
Limb Ataxia: 0-Absent
Sensation: 0-Normal
Best Language: 0-No aphasia
Dysarthria: 1-Mild slurring
Extinction and Inattention: 0-No abnormality
Total Score:: 3
--- NOTE | 2023-10-24 13:48 | W.PN.HOSP.TC ---
Today's Communication/Plan
-
Discharge
Note for OT and ST
No driving till cleared by OT discussed.
Assessment / Plan
Assessment / Plan
CVS: S1-S2 normal
Chest: CTA B/L
Abdomen: Soft, NT / Bowel sounds present
Extremities: No edema, normal pulses
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
# CVA symptoms-slightly speech and facial droop
Symptoms likely secondary to acute right hemispheric CVA
CT without any acute changes but there is hypodensity along the right anterior temporal lobe
CTA with mild fusiform dilatation of the right cavernous ICA 5 mm, hypoplastic left P1 segment
CT perfusion unremarkable
Aspirin Plavix and statin to be continued
MRI of the brain-acute/subacute nonhemorrhagic infarct in the right carlos radiata 1.4 and 1 cm
Echo 10/22/2023-normal LV size and function. No regional wall motion abnormality. EF 61%. Mild asymmetric basal septal hypertrophy. Normal diastolic function. Normal RV size and function.
Lipid panel noted
ASA , Statin. PLavix for 20 days
# Hypertensive urgency versus reactive blood pressure to stroke-likely latter
Blood pressure stabilized
# Moderate alcohol use
Continue alcohol withdrawal protocol and thiamine replacement
# Type 2 diabetes
Hemoglobin A1c 6.3
metformin
Accu-Cheks and sliding scale coverage
# Chronic back pain-continue Tylenol
# Enlarged prostate-Flomax
# DVT prophylaxis-Lovenox
# Full code
Discussed with neurology OK for discharge
Discharge time more than 30 min
Anticipated Discharge: Today
Subjective/Interval History
-
Date of Service: October 24, 2023
Objective Data
-
Vital Signs:
Vital Signs
Temp Pulse Resp BP Pulse Ox
97.6 F 63 16 146/87 99
10/24/23 11:21 08/17/24 11:21 10/24/23 11:21 10/24/23 11:21 10/24/23 11:21
I&O
10/23/23 10/24/23 10/25/23
06:59 06:59 06:59
Intake Total 960 / 960 1380 / 1380
Balance 960 / 960 1380 / 1380
--- NOTE | 2023-10-24 13:52 | W.DS.TRANS ---
Addendum entered and electronically signed by Bill Agarwal MD 10/24/23 15:46:
Dictation- [id number]
Original Note:
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
-
Discharge Instructions:
Discharge Diagnosis/Procedures Cerebrovascular accident symptoms, type 2
diabetes mellitus, chronic back pain, enlarged
prostate
Diet Diabetic, Carb Controlled,2 Gram Sodium
Activity As tolerated
Driving Restrictions You have to be called cleared by Occupational
Ther
Other Services OT,ST
Instructions:
Stand-Alone Forms:
Changes to Home Medications: Yes
Discharge Medications:
DC Medications w/original date entered in [facility]
acetaminophen 500 mg tablet (Tylenol Extra Strength) 1,000 mg PO Q6HPRN PRN mild pain 10/22/23
calcium carbonate 1,000 mg PO DAILY Supplement 10/22/23
metformin 500 mg tablet 500 mg PO BIDWMEAL Diabetes 10/22/23
sildenafil 100 mg tablet 100 mg PO DAILYPRN PRN ed 10/22/23
tamsulosin 0.4 mg capsule 0.4 mg PO DAILY Urinary Issue 10/22/23
aspirin 81 mg chewable tablet 81 mg PO DAILY #30 tabs 10/23/23
atorvastatin 40 mg tablet 40 mg PO QPM #30 tabs 10/23/23
clopidogrel 75 mg tablet (Plavix) 75 mg PO DAILY Stroke #20 tabs 10/24/23
Home Medication Changes
new
aspirin 81 mg chewable tablet 81 mg PO DAILY #30 tabs 10/23/23
atorvastatin 40 mg tablet 40 mg PO QPM #30 tabs 10/23/23
clopidogrel 75 mg tablet (Plavix) 75 mg PO DAILY Stroke #20 tabs 10/24/23
Pending Results: No
--- NOTE | 2023-10-24 14:28 | CM ---
Pt for discharge today
Pt reports has ride home with family member
Discussed IMM
To follow with outpatient therapy
Plan - home with outpatient therapy
[2023-10-24 14:52] VITALS: BP 146/81
== END 2023-10-24 15:21 | disposition home or self-care (01) | DRG 66 ==
LOC: 3 WEST ACU 15:18
PROVIDERS: Nurse Practitioner; ADMITTING PHYSICIAN Hospitalist; ATTENDING PHYSICIAN Hospitalist; CONSULT PHYSICIAN Psychiatry & Neurology Neurology; EMERGENCY PHYSICIAN Emergency Medicine; FAMILY PHYSICIAN Internal Medicine Gastroenterology
DX: I63.89 Other cerebral infarction (principal); I16.0 Hypertensive urgency; R47.1 Dysarthria and anarthria; R29.810 Facial weakness; R29.703 NIHSS score 3; E11.9 Type 2 diabetes mellitus without complications; G89.29 Other chronic pain; N40.0 Benign prostatic hyperplasia without lower urinary tract symptoms; M54.9 Dorsalgia, unspecified; Z79.84 Long term (current) use of oral hypoglycemic drugs
CPT/HCPCS: 0042T; 70450; 70496; 70498; 70553; 74230; 80048; 80053; 80061; 82962; 83036; 84484; 85025; 85027; 85610; 92523; 92610; 92611; 93005; 93306; 97162; 97166; 99285; A9575; Q9967